=== PATIENT | male | born 1960 | race Caucasian/White ===

== ENCOUNTER 2018-01-09 12:37 | Inpatient (IN) | payer MEDICAID, OTHER ==
[~2018-01-09] VITALS: Ht 154.9 cm; Wt 46.1 kg
[~2018-01-09 12:37] MED LIST: FERR-20 PO; THIA100T10 PO
[2018-01-09] MEDS ORDERED: methylPREDNISolone SOD SUCC 125 MG/2 ML VL IV ONE (13:00)
[2018-01-09] MEDS ORDERED: IPRATROPIUM BROM 0.5 MG/2.5ML INH SOL HHN ONE (13:00)
[2018-01-09] MEDS ORDERED: ALBUTEROL SULF 2.5 MG/0.5ML(0.5%) NEB SOLN HHN ONE (13:00)
[2018-01-09 13:15] LABS: Basophils # (auto) 0 uL; Basophils % (auto) 0.3 % (0.0-2.0); Eosinophils # (auto) 0 uL; Eosinophils % (auto) 0.4 % (0.0-7.0); Hematocrit 46.9 % (41.0-53.0); Hemoglobin 15.5 g/dL (13.5-17.5); Lymphocytes # (auto) 4.1 uL; Lymphocytes % (auto) 42.5 % (10.0-50.0); Mean Corpuscular Hemoglobin 30.8 pg (28.0-32.0); Mean Corpuscular Hgb Conc. 33.1 g/dL (32.0-36.0); Mean Corpuscular Volume 93.1 fL (80.0-100.0); Monocytes # (auto) 0.6 uL; Monocytes % (auto) 6.3 % (0.0-12.0); Neutrophils # (auto) 4.8 uL; Neutrophils % (auto) 50.5 % (37.0-80.0); Nucleated Red Blood Cells % 0.1 %; Platelet Count (auto) 141 10^3/uL (140-450); Red Blood Cells 5.03 10^6/uL (4.5-5.90); Red Cell Distribution Width 16.1 % (11.8-14.3); White Blood Cell 9.6 10^3/uL (4.4-10.8)
[2018-01-09 13:35] LABS: Lactic Acid w/Reflex 3.7 mmol/L (0.4-2.0)
[2018-01-09 13:36] LABS: Albumin 3.2 g/dL (3.4-5.0); BUN/Creatinine Ratio 6.2; Bilirubin, Total 0.6 mg/dL (0.2-1.0); Magnesium 1.9 mg/dL (1.6-2.6); Potassium 3.5 mmol/L (3.5-5.1); Total Protein 7.7 g/dL (6.4-8.2)
[2018-01-09] MEDS ORDERED: ACETAMINOPHEN 500 MG TAB PO PRN (14:15)
[2018-01-09] MEDS ORDERED: LORazepam 0.5 MG TAB PO PRN (14:15)
[2018-01-09] MEDS ORDERED: ALBUTEROL SULF 2.5 MG/0.5ML(0.5%) NEB SOLN NEB PRN (14:15)
[2018-01-09] MEDS ORDERED: LACTULOSE 20Gm/30ML SOLN PO PRN (14:15)
[2018-01-09] MEDS ORDERED: traMADol HCL 50 MG TAB PO PRN (14:15)
[2018-01-09] MEDS ORDERED: KETOROLAC TROMETH 30 MG/ML 1ML VIAL IV PRN (14:15)
[2018-01-09] MEDS ORDERED: PROMETHAZINE HCL 25 MG/ML 1ML IV PRN (14:15)
[2018-01-09] MEDS ORDERED: MORPHINE SULF INJ 2 MG/ML SYRINGE 1ML IV PRN (14:15)
[2018-01-09] MEDS ORDERED: TEMAZEPAM 15 MG CAP PO PRN (14:15)
[2018-01-09] MEDS ORDERED: NITROGLYCERIN 0.4 MG SL TAB SL PRN (14:15)
[2018-01-09] MEDS ORDERED: FERROUS SULFATE 325 MG TAB PO SCH (14:29)
[2018-01-09] MEDS ORDERED: ASPirin 81 mg TAB PO ONE (14:30)
[2018-01-09] MEDS ORDERED: PANTOPRAZOLE 40 MG TAB PO ONE (14:30)
[2018-01-09] MEDS ORDERED: ENOXAPARIN SOD 40 MG/0.4 ML SYRINGE SC ONE (14:30)
[2018-01-09] MEDS ORDERED: NITROGLYCERIN 0.2MG/HR TOPICAL PATCH TD ONE (14:30)
[2018-01-09] MEDS: SODIUM CHLORIDE 0.9% 1,000 ML IV SCH (14:39)
[2018-01-09] MEDS: DOXYCYCLINE 100MG/250ML 250 ML IV SCH (14:40)
[2018-01-09] MEDS: THIAMINE HCL 100 MG TAB PO SCH (14:46)
[2018-01-09 15:35] LABS: CRP High Sensitivity 0.3 mg/dL (< 0.3)
[2018-01-09 17:46] VITALS: BP 146/55
[2018-01-09] MEDS: IPRATROPIUM BROM 0.5 MG/2.5ML INH SOL NEB SCH ×2 (18:10→23:37)
[2018-01-09] MEDS: ALBUTEROL SULF 2.5 MG/0.5ML(0.5%) NEB SOLN NEB SCH ×2 (18:10→23:37)
[2018-01-09] MEDS: methylPREDNISolone SOD SUCC 40 MG/ML VL IV SCH ×2 (18:15→23:12)
[2018-01-09] MEDS ORDERED: LORazepam 2MG/ML-1ML VIAL IM ONE (20:30)
[2018-01-09] MEDS ORDERED: LORazepam 2MG/ML-1ML VIAL ONE (20:32)
[2018-01-09 22:00] VITALS: BP_SYST 128; BP_SYST 135; BP_DIAS 62; BP_DIAS 65
[2018-01-09] MEDS: ATORVASTATIN 20 MG TAB PO SCH (23:11)
[2018-01-09] MEDS: METOPROLOL TARTRATE 25 MG TAB PO SCH (23:12)
[2018-01-10] MEDS: DOXYCYCLINE 100MG/250ML 250 ML IV SCH ×2 (02:03→15:51)
[2018-01-10] MEDS: SODIUM CHLORIDE 0.9% 1,000 ML IV SCH (03:16)
[2018-01-10 05:00] VITALS: BP 140/69
[2018-01-10] MEDS: methylPREDNISolone SOD SUCC 40 MG/ML VL IV SCH ×4 (06:44→21:51)
[2018-01-10 06:50] VITALS: BP 136/69
[2018-01-10] MEDS: ALBUTEROL SULF 2.5 MG/0.5ML(0.5%) NEB SOLN NEB SCH ×3 (07:26→19:38)
[2018-01-10] MEDS: IPRATROPIUM BROM 0.5 MG/2.5ML INH SOL NEB SCH ×3 (07:27→19:38)
[2018-01-10 09:00] VITALS: BP 143/77
[2018-01-10] MEDS: FERROUS SULFATE 325 MG TAB PO SCH ×2 (10:00→10:10)
[2018-01-10] MEDS: ENOXAPARIN SOD 40 MG/0.4 ML SYRINGE SC SCH ×2 (10:00→10:08)
[2018-01-10] MEDS ORDERED: NITROGLYCERIN 0.2MG/HR TOPICAL PATCH TD SCH (10:00)
[2018-01-10] MEDS ORDERED: ENOXAPARIN SOD 40 MG/0.4 ML SYRINGE SC SCH (10:00)
[2018-01-10] MEDS: METOPROLOL TARTRATE 25 MG TAB PO SCH ×2 (10:09→21:51)
[2018-01-10] MEDS: THIAMINE HCL 100 MG TAB PO SCH (10:09)
[2018-01-10] MEDS: PANTOPRAZOLE 40 MG TAB PO SCH (10:10)
[2018-01-10] MEDS: ASPirin 81 mg TAB PO SCH (10:10)
[2018-01-10 13:00] VITALS: BP 139/71
[2018-01-10 17:00] VITALS: BP 128/72
[2018-01-10] MEDS ORDERED: FLUT1INH6 IN (17:27)
[2018-01-10] MEDS ORDERED: LOSA100T33 PO (17:27)
[2018-01-10] MEDS ORDERED: PRAS10TA8 PO (17:27)
[2018-01-10] MEDS ORDERED: ASPI-231 PO (17:27)
[2018-01-10] MEDS ORDERED: MULTCAP45 PO (17:27)
[2018-01-10] MEDS ORDERED: LOSA100T25 PO (17:27)
[2018-01-10] MEDS ORDERED: BUDE0.5S IN (17:27)
[2018-01-10] MEDS ORDERED: MEGE1SUS5 PO (17:27)
[2018-01-10] MEDS: ATORVASTATIN 20 MG TAB PO SCH (21:51)
[2018-01-10 22:00] VITALS: BP 114/44
[2018-01-11] MEDS: ALBUTEROL SULF 2.5 MG/0.5ML(0.5%) NEB SOLN NEB SCH ×2 (01:27→06:49)
[2018-01-11] MEDS: IPRATROPIUM BROM 0.5 MG/2.5ML INH SOL NEB SCH ×2 (01:27→06:49)
[2018-01-11] MEDS: DOXYCYCLINE 100MG/250ML 250 ML IV SCH (02:15)
[2018-01-11 05:00] VITALS: BP 126/66
[2018-01-11] MEDS: methylPREDNISolone SOD SUCC 40 MG/ML VL IV SCH (05:37)
[2018-01-11 09:00] VITALS: BP 161/82
[2018-01-11] MEDS: ENOXAPARIN SOD 40 MG/0.4 ML SYRINGE SC SCH ×2 (09:36→10:00)
[2018-01-11] MEDS: FERROUS SULFATE 325 MG TAB PO SCH ×2 (09:37→10:00)
[2018-01-11] MEDS: ASPirin 81 mg TAB PO SCH (09:37)
[2018-01-11] MEDS: PANTOPRAZOLE 40 MG TAB PO SCH (09:37)
[2018-01-11] MEDS: METOPROLOL TARTRATE 25 MG TAB PO SCH (09:37)
[2018-01-11] MEDS: THIAMINE HCL 100 MG TAB PO SCH (09:38)
[2018-01-11 12:28] VITALS: BP 148/75
[2018-01-11 12:38] VITALS: BP 158/78
== END 2018-01-11 15:05 | disposition home or self-care (01) | DRG 720 ==
LOC: EDBD 12:37 → ER 12:37 → TELE 12:38 → TELE-WESTW 21:31
PROVIDERS: ADMIT Internal Medicine; ATTEND Internal Medicine
DX: A41.9 Sepsis, unspecified organism (principal); J96.00 Acute respiratory failure, unspecified whether with hypoxia or hypercapnia; I50.43 Acute on chronic combined systolic (congestive) and diastolic (congestive) heart failure; I74.3 Embolism and thrombosis of arteries of the lower extremities; J44.0 Chronic obstructive pulmonary disease with (acute) lower respiratory infection; G20 Parkinson's disease; J44.1 Chronic obstructive pulmonary disease with (acute) exacerbation; J45.901 Unspecified asthma with (acute) exacerbation; E78.5 Hyperlipidemia, unspecified; I11.0 Hypertensive heart disease with heart failure; F17.210 Nicotine dependence, cigarettes, uncomplicated; J20.9 Acute bronchitis, unspecified; Z86.73 Personal history of transient ischemic attack (TIA), and cerebral infarction without residual deficits; Z79.899 Other long term (current) drug therapy
CPT/HCPCS: 36415; 71045; 80053; 82550; 83605; 83735; 83880; 84443; 84484; 85025; 85379; 85652; 86141; 87040; 93005; 94640; 96372; 96374; J3490

== ENCOUNTER 2018-04-03 22:52 | Inpatient (IN) | payer MEDICAID ==
[~2018-04-03] VITALS: Ht 165.1 cm; Wt 146.9 kg
[~2018-04-03 22:52] MED LIST changes: +ASPI-231 PO; +BUDE0.5S IN; +FLUT1INH6 IN; +LOSA100T25 PO; +MEGE1SUS5 PO; +MULTCAP45 PO; +PRAS10TA8 PO
[2018-04-03] MEDS ORDERED: methylPREDNISolone SOD SUCC 125 MG/2 ML VL IV ONE (23:45)
[2018-04-03] MEDS ORDERED: ALBUTEROL SULF 2.5 MG/0.5ML(0.5%) NEB SOLN NEB ONE (23:45)
[2018-04-03] MEDS ORDERED: IPRATROPIUM BROM 0.5 MG/2.5ML INH SOL NEB ONE (23:45)
[2018-04-03 23:51] LABS: Basophils # (auto) 0 uL; Basophils % (auto) 0.5 % (0.0-2.0); Eosinophils # (auto) 0.1 uL; Eosinophils % (auto) 1.3 % (0.0-7.0); Hemoglobin 13.7 g/dL (13.5-17.5); Lymphocytes # (auto) 2.4 uL; Lymphocytes % (auto) 38.6 % (10.0-50.0); Mean Corpuscular Hemoglobin 28.7 pg (28.0-32.0); Mean Corpuscular Hgb Conc. 32.8 g/dL (32.0-36.0); Mean Corpuscular Volume 87.7 fL (80.0-100.0); Monocytes # (auto) 0.7 uL; Monocytes % (auto) 10.7 % (0.0-12.0); Neutrophils % (auto) 48.9 % (37.0-80.0); Platelet Count (auto) 196 10^3/uL (140-450); Red Blood Cells 4.79 10^6/uL (4.5-5.90); Red Cell Distribution Width 17.2 % (11.8-14.3); White Blood Cell 6.1 10^3/uL (4.4-10.8)
[2018-04-04] VITALS (7 sets, daily range): BP systolic 125–137; BP diastolic 60–104
[2018-04-04 00:31] LABS: Albumin 3.3 g/dL (3.4-5.0); BUN/Creatinine Ratio 14.8; Calcium 8.5 mg/dL (8.5-10.1); Potassium 3.2 mmol/L (3.5-5.1)
[2018-04-04 00:36] LABS: Bilirubin, Total 0.4 mg/dL (0.2-1.0); Total Protein 7.6 g/dL (6.4-8.2)
[2018-04-04] MEDS ORDERED: POTASSIUM EFFERVESENT TAB 25 MEQ PO ONE (02:45)
[2018-04-04] MEDS ORDERED: HYDROcodone-ACET 5/325MG TAB PO PRN (04:15)
[2018-04-04] MEDS ORDERED: ACETAMINOPHEN 325 MG TAB PO PRN (04:15)
[2018-04-04] MEDS ORDERED: NITROGLYCERIN 0.4 MG SL TAB SL PRN (04:15)
[2018-04-04] MEDS ORDERED: ONDANSETRON HCL 4 MG/2 ML VIAL IV PRN (04:15)
[2018-04-04] MEDS ORDERED: MORPHINE SULFATE 4 MG/ML SYR/VIAL IV PRN (04:15)
[2018-04-04] MEDS ORDERED: TEMAZEPAM 15 MG CAP PO PRN (04:15)
[2018-04-04] MEDS ORDERED: ASPirin 81 mg TAB PO SCH ×2 (10:00)
[2018-04-04] MEDS: PRASUGREL HCL 10 MG TAB PO SCH (10:50)
[2018-04-04] MEDS: FAMOTIDINE 20 MG TAB PO SCH ×2 (10:50→20:57)
[2018-04-04] MEDS: LOSARTAN POTASSIUM 50 MG TAB PO SCH (10:51)
[2018-04-04] MEDS ORDERED: NICOTINE 21MG/24 HR TOPICAL PATCH TD ONE (14:45)
[2018-04-04] MEDS ORDERED: DOXYCYCLINE 100MG/250ML 250 ML IV ONE (14:45)
[2018-04-04] MEDS: ALPRAZolam 0.5 MG TAB PO PRN (15:26)
[2018-04-04] MEDS: Ensure Enlive Chocolate 8oz Bottle PO SCH (18:00)
[2018-04-04] MEDS: IPRATROPIUM BROM 0.5 MG/2.5ML INH SOL NEB PRN (19:10)
[2018-04-04] MEDS: BUDESONIDE (INHALATION) 0.5 MG/2 ML NEB NEB SCH (19:10)
[2018-04-04] MEDS: ALBUTEROL SULF 2.5 MG/0.5ML(0.5%) NEB SOLN NEB PRN (19:10)
[2018-04-04] MEDS ORDERED: methylPREDNISolone SOD SUCC 40 MG/ML VL IV SCH (22:00)
[2018-04-05 04:45] VITALS: BP 121/57
[2018-04-05] MEDS: DOXYCYCLINE 100MG/250ML 250 ML IV SCH ×2 (05:32→18:00)
[2018-04-05] MEDS: ALPRAZolam 0.5 MG TAB PO PRN (05:41)
[2018-04-05] MEDS: BUDESONIDE (INHALATION) 0.5 MG/2 ML NEB NEB SCH ×2 (06:31→18:26)
[2018-04-05] MEDS: Ensure Enlive Chocolate 8oz Bottle PO SCH ×3 (08:00→18:24)
[2018-04-05 09:00] VITALS: BP 148/64
[2018-04-05] MEDS: NICOTINE 21MG/24 HR TOPICAL PATCH TD SCH (10:00)
[2018-04-05] MEDS: ENOXAPARIN SOD 40 MG/0.4 ML SYRINGE SC SCH (10:00)
[2018-04-05] MEDS: ASPirin 81 mg TAB PO SCH (10:28)
[2018-04-05] MEDS: LOSARTAN POTASSIUM 50 MG TAB PO SCH (10:29)
[2018-04-05] MEDS: PRASUGREL HCL 10 MG TAB PO SCH (10:29)
[2018-04-05] MEDS: THIAMINE HCL 100 MG TAB PO SCH (10:29)
[2018-04-05] MEDS: FAMOTIDINE 20 MG TAB PO SCH ×2 (10:29→22:00)
[2018-04-05] MEDS: ALBUTEROL SULF 2.5 MG/0.5ML(0.5%) NEB SOLN NEB PRN (18:26)
[2018-04-05] MEDS: IPRATROPIUM BROM 0.5 MG/2.5ML INH SOL NEB PRN (18:26)
[2018-04-05 21:59] LABS: Basophils # (auto) 0 uL; Basophils % (auto) 0.1 % (0.0-2.0); Eosinophils # (auto) 0 uL; Eosinophils % (auto) 0.1 % (0.0-7.0); Hematocrit 38.2 % (41.0-53.0); Hemoglobin 12.2 g/dL (13.5-17.5); Lymphocytes # (auto) 1.7 uL; Lymphocytes % (auto) 23.8 % (10.0-50.0); Mean Corpuscular Hemoglobin 28.7 pg (28.0-32.0); Mean Corpuscular Hgb Conc. 31.9 g/dL (32.0-36.0); Mean Corpuscular Volume 90.1 fL (80.0-100.0); Monocytes # (auto) 0.5 uL; Monocytes % (auto) 6.3 % (0.0-12.0); Neutrophils # (auto) 5.1 uL; Neutrophils % (auto) 69.7 % (37.0-80.0); Platelet Count (auto) 180 10^3/uL (140-450); Red Blood Cells 4.24 10^6/uL (4.5-5.90); Red Cell Distribution Width 17.6 % (11.8-14.3); White Blood Cell 7.3 10^3/uL (4.4-10.8)
[2018-04-05 22:00] VITALS: BP 111/68
[2018-04-05 22:17] LABS: Albumin 2.5 g/dL (3.4-5.0); Calcium 8.3 mg/dL (8.5-10.1); Magnesium 2.1 mg/dL (1.6-2.6); Potassium 3.7 mmol/L (3.5-5.1)
[2018-04-05 22:21] LABS: BUN/Creatinine Ratio 41.8; Bilirubin, Total 0.3 mg/dL (0.2-1.0); Total Protein 5.9 g/dL (6.4-8.2)
[2018-04-06] MEDS: DOXYCYCLINE 100MG/250ML 250 ML IV SCH ×2 (05:37→17:14)
[2018-04-06 09:00] VITALS: BP 128/65
[2018-04-06] MEDS: methylPREDNISolone SOD SUCC 40 MG/ML VL IV SCH (10:00)
[2018-04-06] MEDS: BUDESONIDE (INHALATION) 0.5 MG/2 ML NEB NEB SCH ×2 (10:00→19:02)
[2018-04-06] MEDS: IPRATROPIUM BROM 0.5 MG/2.5ML INH SOL NEB PRN ×3 (10:00→19:02)
[2018-04-06] MEDS: NICOTINE 21MG/24 HR TOPICAL PATCH TD SCH (10:00)
[2018-04-06] MEDS: ALBUTEROL SULF 2.5 MG/0.5ML(0.5%) NEB SOLN NEB PRN ×3 (10:00→19:02)
[2018-04-06] MEDS: ENOXAPARIN SOD 40 MG/0.4 ML SYRINGE SC SCH (10:00)
[2018-04-06] MEDS: THIAMINE HCL 100 MG TAB PO SCH (10:30)
[2018-04-06] MEDS: ASPirin 81 mg TAB PO SCH (10:30)
[2018-04-06] MEDS: Ensure Enlive Chocolate 8oz Bottle PO SCH ×3 (10:30→18:00)
[2018-04-06] MEDS: LOSARTAN POTASSIUM 50 MG TAB PO SCH (10:31)
[2018-04-06] MEDS: FAMOTIDINE 20 MG TAB PO SCH ×2 (10:31→21:29)
[2018-04-06] MEDS: PRASUGREL HCL 10 MG TAB PO SCH (10:31)
[2018-04-06 13:00] VITALS: BP 127/60
[2018-04-06] MEDS ORDERED: LORazepam 2MG/ML-1ML VIAL IV PRN (16:30)
[2018-04-06 17:00] VITALS: BP 142/73
[2018-04-06] MEDS: ATORVASTATIN 20 MG TAB PO SCH (21:28)
[2018-04-06] MEDS: chlordiazePOXIDE HCL 5 MG CAP PO SCH (21:29)
[2018-04-06 22:00] VITALS: BP 132/64
[2018-04-07] VITALS (8 sets, daily range): BP systolic 97–132; BP diastolic 41–72
[2018-04-07] MEDS: chlordiazePOXIDE HCL 5 MG CAP PO SCH ×3 (05:46→22:09)
[2018-04-07] MEDS: DOXYCYCLINE 100MG/250ML 250 ML IV SCH ×2 (05:51→18:00)
[2018-04-07] MEDS: Ensure Enlive Chocolate 8oz Bottle PO SCH ×3 (07:46→19:08)
[2018-04-07] MEDS: IPRATROPIUM BROM 0.5 MG/2.5ML INH SOL NEB PRN ×3 (09:36→22:45)
[2018-04-07] MEDS: ALBUTEROL SULF 2.5 MG/0.5ML(0.5%) NEB SOLN NEB PRN ×3 (09:36→22:45)
[2018-04-07] MEDS: BUDESONIDE (INHALATION) 0.5 MG/2 ML NEB NEB SCH ×2 (09:36→22:45)
[2018-04-07] MEDS: PRASUGREL HCL 10 MG TAB PO SCH (10:00)
[2018-04-07] MEDS: LOSARTAN POTASSIUM 50 MG TAB PO SCH (10:00)
[2018-04-07] MEDS: methylPREDNISolone SOD SUCC 40 MG/ML VL IV SCH (10:00)
[2018-04-07] MEDS: ENOXAPARIN SOD 40 MG/0.4 ML SYRINGE SC SCH (10:00)
[2018-04-07] MEDS: NICOTINE 21MG/24 HR TOPICAL PATCH TD SCH (10:00)
[2018-04-07] MEDS: FAMOTIDINE 20 MG TAB PO SCH ×2 (10:00→22:09)
[2018-04-07] MEDS: THIAMINE HCL 100 MG TAB PO SCH (12:03)
[2018-04-07] MEDS: ASPirin 81 mg TAB PO SCH (12:04)
[2018-04-07 13:09] LABS: Calcium 8.4 mg/dL (8.5-10.1); Potassium 3.8 mmol/L (3.5-5.1)
[2018-04-07 13:15] LABS: BUN/Creatinine Ratio 40.4
[2018-04-07 13:42] LABS: Folate (Folic Acid) 23.48 ng/mL (5.38-24)
[2018-04-07] MEDS ORDERED: LORazepam 2MG/ML-1ML VIAL IV ONE (14:15)
[2018-04-07] MEDS: ATORVASTATIN 20 MG TAB PO SCH (22:09)
[2018-04-08] MEDS: HYDROcodone-ACET 5/325MG TAB PO PRN ×2 (00:14→10:36)
[2018-04-08 05:00] VITALS: BP 113/64
[2018-04-08] MEDS: DOXYCYCLINE 100MG/250ML 250 ML IV SCH (05:30)
[2018-04-08] MEDS: chlordiazePOXIDE HCL 5 MG CAP PO SCH ×2 (05:30→14:32)
[2018-04-08 08:20] VITALS: BP 108/69
[2018-04-08] MEDS: Ensure Enlive Chocolate 8oz Bottle PO SCH ×2 (08:25→12:04)
[2018-04-08 08:30] VITALS: BP 115/65
[2018-04-08] MEDS ORDERED: predniSONE 20 MG TAB PO SCH (10:00)
[2018-04-08] MEDS: ENOXAPARIN SOD 40 MG/0.4 ML SYRINGE SC SCH (10:00)
[2018-04-08] MEDS: NICOTINE 21MG/24 HR TOPICAL PATCH TD SCH (10:00)
[2018-04-08] MEDS: PRASUGREL HCL 10 MG TAB PO SCH (10:17)
[2018-04-08] MEDS: FAMOTIDINE 20 MG TAB PO SCH (10:17)
[2018-04-08] MEDS: THIAMINE HCL 100 MG TAB PO SCH (10:18)
[2018-04-08] MEDS: LOSARTAN POTASSIUM 50 MG TAB PO SCH (10:19)
[2018-04-08] MEDS: ASPirin 81 mg TAB PO SCH (10:20)
[2018-04-08] MEDS: IPRATROPIUM BROM 0.5 MG/2.5ML INH SOL NEB PRN (10:21)
[2018-04-08] MEDS: BUDESONIDE (INHALATION) 0.5 MG/2 ML NEB NEB SCH (10:21)
[2018-04-08] MEDS: ALBUTEROL SULF 2.5 MG/0.5ML(0.5%) NEB SOLN NEB PRN (10:21)
[2018-04-08 12:53] VITALS: BP 131/88
[2018-04-08] MEDS ORDERED: ALBUAER3 IN (13:33)
[2018-04-08] MEDS ORDERED: MEGE1SUS5 PO (13:33)
[2018-04-08] MEDS ORDERED: BUDE0.5S IN (13:33)
[2018-04-08 14:42] VITALS: BP 131/88
[2018-04-08 22:19] VITALS: BP 129/64
== END 2018-04-08 15:10 | disposition home or self-care (01) | DRG 133 ==
LOC: EDUNIT# 22:52 → ER 22:55 → TELE 04-04 04:15 → TELE-WESTW 04-04 04:51 → WEST WING 04-08 13:08
PROVIDERS: ADMIT Nurse Practitioner; ATTEND Internal Medicine
DX: J96.00 Acute respiratory failure, unspecified whether with hypoxia or hypercapnia (principal); G20 Parkinson's disease; J44.0 Chronic obstructive pulmonary disease with (acute) lower respiratory infection; I11.0 Hypertensive heart disease with heart failure; I50.42 Chronic combined systolic (congestive) and diastolic (congestive) heart failure; J45.901 Unspecified asthma with (acute) exacerbation; J20.9 Acute bronchitis, unspecified; J44.1 Chronic obstructive pulmonary disease with (acute) exacerbation; E87.6 Hypokalemia; F10.10 Alcohol abuse, uncomplicated; H53.8 Other visual disturbances; Z53.20 Procedure and treatment not carried out because of patient's decision for unspecified reasons; I70.0 Atherosclerosis of aorta; I73.9 Peripheral vascular disease, unspecified; E78.5 Hyperlipidemia, unspecified; F17.210 Nicotine dependence, cigarettes, uncomplicated; G25.2 Other specified forms of tremor; G11.9 Hereditary ataxia, unspecified; R74.8 Abnormal levels of other serum enzymes; I25.10 Atherosclerotic heart disease of native coronary artery without angina pectoris; I25.2 Old myocardial infarction; Z86.73 Personal history of transient ischemic attack (TIA), and cerebral infarction without residual deficits; Z79.899 Other long term (current) drug therapy; Z79.82 Long term (current) use of aspirin
CPT/HCPCS: 36415; 70551; 71045; 80048; 80053; 80061; 82607; 82746; 83735; 83880; 84443; 84484; 85025; 85379; 87040; 87081; 87804; 93005; 94640; 96365; 96375; A6257; G0378; J2405; J3490

== ENCOUNTER 2018-04-18 06:03 | Emergency (ER) | payer MEDICAID ==
[~2018-04-18] VITALS: Ht 157.5 cm; Wt 54.4 kg
[~2018-04-18 06:03] MED LIST changes: +ALBUAER3 IN
[2018-04-18] MEDS ORDERED: SODIUM CHLORIDE 0.9% 1,000 ML IV ONE (06:52)
[2018-04-18] MEDS ORDERED: IPRATROPIUM BROM 0.5 MG/2.5ML INH SOL NEB ONE (07:00)
[2018-04-18] MEDS ORDERED: ASPirin 81 mg TAB PO ONE (07:00)
[2018-04-18] MEDS ORDERED: ALBUTEROL SULF 2.5 MG/0.5ML(0.5%) NEB SOLN NEB ONE (07:00)
[2018-04-18 07:09] LABS: Basophils # (auto) 0 uL; Basophils % (auto) 0.3 % (0.0-2.0); Eosinophils # (auto) 0.1 uL; Eosinophils % (auto) 0.5 % (0.0-7.0); Hematocrit 47.3 % (41.0-53.0); Lymphocytes % (auto) 33.5 % (10.0-50.0); Mean Corpuscular Hemoglobin 29.1 pg (28.0-32.0); Mean Corpuscular Hgb Conc. 31.6 g/dL (32.0-36.0); Monocytes # (auto) 0.7 uL; Monocytes % (auto) 5.9 % (0.0-12.0); Neutrophils # (auto) 7.1 uL; Neutrophils % (auto) 59.8 % (37.0-80.0); Nucleated Red Blood Cells % 0.2 %; Platelet Count (auto) 207 10^3/uL (140-450); Red Blood Cells 5.15 10^6/uL (4.5-5.90); White Blood Cell 11.8 10^3/uL (4.4-10.8)
[2018-04-18 07:29] LABS: Potassium 4.6 mmol/L (3.5-5.1)
[2018-04-18 07:38] LABS: BUN/Creatinine Ratio 12.7; Bilirubin, Total 0.4 mg/dL (0.2-1.0); Calcium 7.8 mg/dL (8.5-10.1); Total Protein 7.1 g/dL (6.4-8.2)
[2018-04-18] MEDS ORDERED: FUROSEMIDE 40 MG/4 ML VIAL IV ONE (08:15)
[2018-04-18] MEDS ORDERED: ENOXAPARIN SOD 60 MG/0.6 ML SYRINGE SC ONE (08:15)
[2018-04-18] MEDS ORDERED: NITROGLYCERIN 0.4 MG SL TAB SL PRN (09:15)
[2018-04-18] MEDS ORDERED: methylPREDNISolone SOD SUCC 40 MG/ML VL IV SCH (09:15)
[2018-04-18] MEDS ORDERED: LORazepam 0.5 MG TAB PO PRN (09:15)
[2018-04-18] MEDS ORDERED: PROMETHAZINE HCL 25 MG/ML 1ML IV PRN (09:15)
[2018-04-18] MEDS ORDERED: ACETAMINOPHEN 500 MG TAB PO PRN (09:15)
[2018-04-18] MEDS ORDERED: HYDROcodone-ACET 5/325MG TAB PO PRN (09:15)
[2018-04-18] MEDS ORDERED: LACTULOSE 20Gm/30ML SOLN PO PRN (09:15)
[2018-04-18] MEDS ORDERED: ALBUTEROL SULF 2.5 MG/0.5ML(0.5%) NEB SOLN NEB PRN (09:15)
[2018-04-18] MEDS ORDERED: DOXYCYCLINE 100MG/250ML 250 ML IV SCH (09:15)
[2018-04-18] MEDS ORDERED: MORPHINE SULFATE 4 MG/ML SYR/VIAL IV PRN ×2 (09:15)
[2018-04-18] MEDS ORDERED: TEMAZEPAM 15 MG CAP PO PRN (09:15)
[2018-04-18] MEDS ORDERED: OSELTAMIVIR 75 MG CAP PO ONE (09:15)
[2018-04-18 09:50] VITALS: BP 138/56
[2018-04-18] MEDS ORDERED: PANTOPRAZOLE 40 MG TAB PO SCH (10:00)
[2018-04-18] MEDS ORDERED: FUROSEMIDE 40 MG/4 ML VIAL IV SCH (10:00)
[2018-04-18] MEDS ORDERED: ASPirin 81 mg TAB PO SCH (10:00)
[2018-04-18] MEDS ORDERED: ENOXAPARIN SOD 40 MG/0.4 ML SYRINGE SC SCH (10:00)
[2018-04-18] MEDS ORDERED: POTASSIUM CHL 20 Meq TABLET PO SCH (10:00)
[2018-04-18] MEDS ORDERED: NITROGLYCERIN 0.2MG/HR TOPICAL PATCH TD SCH (10:00)
[2018-04-18] MEDS ORDERED: ENALAPRIL MALEATE 2.5 MG TAB PO SCH (10:00)
[2018-04-18] MEDS ORDERED: OSELTAMIVIR 75 MG CAP PO SCH (10:00)
[2018-04-18] MEDS ORDERED: IPRATROPIUM BROM 0.5 MG/2.5ML INH SOL NEB SCH (12:00)
[2018-04-18] MEDS ORDERED: ALBUTEROL SULF 2.5 MG/0.5ML(0.5%) NEB SOLN NEB SCH (12:00)
[2018-04-18] MEDS ORDERED: ATORVASTATIN 20 MG TAB PO SCH (22:00)
== END 2018-04-18 11:40 | disposition left against medical advice (07) ==
LOC: ER 06:03 → EDBD 06:03 → UNDOADMIN 09:08 → TELE 09:08 → ER 11:25
DX: I11.0 Hypertensive heart disease with heart failure (principal); I50.9 Heart failure, unspecified; F17.210 Nicotine dependence, cigarettes, uncomplicated; J44.9 Chronic obstructive pulmonary disease, unspecified; E78.5 Hyperlipidemia, unspecified; I25.2 Old myocardial infarction; Z86.73 Personal history of transient ischemic attack (TIA), and cerebral infarction without residual deficits; Z53.29 Procedure and treatment not carried out because of patient's decision for other reasons
CPT/HCPCS: 36415; 71045; 80053; 82550; 83880; 84443; 84484; 85025; 93005; 94640; 94761; 96361; 96365; 96366; 96375; 99291; J1940; J2920; J3490; J7030; J7611; J7644